=== PATIENT | female | born 1990 | race Two or more races ===

== ENCOUNTER 2017-06-13 09:13 | Inpatient (IN) | payer OTHER ==
[~2017-06-13] VITALS: Ht 160 cm; Wt 1.8 kg
[~2017-06-13 09:13] MED LIST: ASPIR 8181 MG; CITRANATAL B-C1 EAC1; LEVOXYL25 MCG; LEVOXYL25 MCG PO; PRENATAL TABLE1 EACH PO
== END 2017-06-16 13:25 | disposition home or self-care (01) | DRG 765 ==
LOC: OBS/DEL 09:13 → LDR 15:33 → O/R 22:11 → OB/GYN 23:59
PROVIDERS: Obstetrics & Gynecology
PROC: 4A1HXCZ Monitoring of Products of Conception, Cardiac Rate, External Approach (ICD-10-PCS; 2017-06-13)
PROC: 4A033R1 Measurement of Arterial Saturation, Peripheral, Percutaneous Approach (ICD-10-PCS; 2017-06-13)
PROC: 10D00Z1 Extraction of Products of Conception, Low, Open Approach (ICD-10-PCS; principal; 2017-06-13 21:00)
DX: O62.1 Secondary uterine inertia (principal); O60.14X0 Preterm labor third trimester with preterm delivery third trimester, not applicable or unspecified; O42.113 Preterm premature rupture of membranes, onset of labor more than 24 hours following rupture, third trimester; Z3A.35 35 weeks gestation of pregnancy; Z37.0 Single live birth; O69.81X0 Labor and delivery complicated by cord around neck, without compression, not applicable or unspecified; O99.283 Endocrine, nutritional and metabolic diseases complicating pregnancy, third trimester; E03.8 Other specified hypothyroidism

== ENCOUNTER 2017-10-27 10:37 | Emergency (ER) | payer OTHER ==
[~2017-10-27] VITALS: Ht 162.6 cm; Wt 84.4 kg
[2017-10-27] MEDS ORDERED: LEVO-T25 MCG (11:14)
== END 2017-10-27 20:26 | disposition home or self-care (01) ==
LOC: ER 10:37
DX: R10.2 Pelvic and perineal pain (principal)

== ENCOUNTER 2017-12-18 13:28 | Emergency (ER) | payer OTHER ==
[~2017-12-18] VITALS: Ht 162.6 cm; Wt 77.1 kg
[~2017-12-18 13:28] MED LIST changes: +LEVO-T25 MCG
== END 2017-12-18 19:23 | disposition home or self-care (01) ==
LOC: ER 13:28
DX: N83.02 Follicular cyst of left ovary (principal); N83.01 Follicular cyst of right ovary; R10.2 Pelvic and perineal pain

== ENCOUNTER 2022-09-17 06:34 | Day surgery (SDC) | payer OTHER | END 2022-09-17 14:05 | disposition home or self-care (01) | LOC: CIR.AMB 06:34 | PROVIDERS: ATTEND Obstetrics & Gynecology | DX: Z30.2 Encounter for sterilization (principal); N83.8 Other noninflammatory disorders of ovary, fallopian tube and broad ligament; R10.2 Pelvic and perineal pain; Z64.1 Problems related to multiparity; N70.91 Salpingitis, unspecified ==

== ENCOUNTER 2022-09-24 14:10 | Emergency (ER) | payer OTHER ==
[~2022-09-24] VITALS: Ht 162.6 cm; Wt 83.5 kg
[2022-09-24] MEDS ORDERED: TRAMADOL HCL50 MG PO (19:42)
== END 2022-09-24 19:50 | disposition home or self-care (01) ==
LOC: ER 14:10
DX: N83.209 Unspecified ovarian cyst, unspecified side (principal); Z90.79 Acquired absence of other genital organ(s)